=== PATIENT | female | born 1960 | race Caucasian/White ===

== ENCOUNTER 2022-09-20 14:30 | Outpatient (RCR) | payer MEDICARE, SELFPAY | END 2022-10-09 13:17 | disposition home or self-care (01) | LOC: ANHDMC 14:30 | PROVIDERS: PCP Internal Medicine Endocrinology, Diabetes & Metabolism; Visit Provider Internal Medicine Endocrinology, Diabetes & Metabolism | DX: E11.65 Type 2 diabetes mellitus with hyperglycemia (principal); Z71.89 Other specified counseling | CPT/HCPCS: G0108; G0109 ==

== ENCOUNTER 2023-07-05 13:18 | Outpatient (CLI) | payer MEDICARE, SELFPAY ==
--- NOTE | 2023-07-05 13:37 | ECG_ITS ---
Measurements Intervals [place] Rate: 56 P: 47 AL: 153 QRS: -4 QRSD: 96 T: 27 QT: 370 QTc: 360 Interpretive Statements SINUS BRADYCARDIA MINIMAL VOLTAGE CRITERIA FOR LVH, CONSIDER NORMAL VARIANT [MEETS CRITERIA IN ONE OF: R(aVL), S(V1), R(V5), R(V5/V6)+S(V1)] NO PREVIOUS ECG AVAILABLE FOR COMPARISON Electronically Signed On 07-05-2023 14:08:52 [employer]IOR [employer] by Ginna Sloan M.D.
[2023-07-05 14:11] LABS: Anion Gap 7 mmol/L (8-16); Blood Urea Nitrogen 23 mg/dL (7-17); Calcium 9.3 mg/dL (8.4-10.2); Carbon Dioxide 28 mmol/L (22-30); Chloride 97 mmol/L (98-107); Estimated Glomerular Filt Rate > 60; Glucose 133 mg/dL (65-110); Potassium 4.1 mmol/L (3.4-5.0); Sodium 132 mmol/L (137-145)
== END 2023-07-05 13:19 | disposition home or self-care (01) ==
LOC: ANHSURGERY 13:34
PROVIDERS: Anesthesiology; Visit Provider Urology
DX: N36.42 Intrinsic sphincter deficiency (ISD) (principal); E11.9 Type 2 diabetes mellitus without complications; Z01.818 Encounter for other preprocedural examination
CPT/HCPCS: 36415; 80048; 87086; 93005

== ENCOUNTER 2023-07-13 01:17 | Day surgery (SDC) | payer MEDICARE, SELFPAY ==
[2023-06-29 14:51] VITALS: BMI 36.6
--- NOTE | 2023-06-29 15:03 | PC.NURSE ---
PRE-OP INSTRUCTIONS, PLEASE READ CAREFULLY Report to the Outpatient Waiting Room, entrance under the green pavilion located off [facility], at time _0915_ on date _07/13/23_. Planned Procedure Time: _1115_. Time changes happen often and if your time is changed the preop area will call you the afternoon before. - You and your visitor will be asked to self-screen and do not enter if you have any COVID symptoms. - A mask is optional within the hospital at this time. Patients may have clear liquids (water, carbonated beverages, clear teas, apple juice) until 3 hours prior to surgery (0815 AM) with a maximum of 20 ounces. - No food from midnight until time of surgery Take the following medications with a SIP of water the morning of surgery: _BUPROPION, DULOXETINE, GABAPENTIN, UNITHROID_ DO NOT STOP ANY OF YOUR OTHER PRESCRIPTION MEDICATIONS PRIOR TO SURGERY ?EXCEPT THE FOLLOWING Medications to discontinue per physician __NONE____, Date to take last dose Please no make-up, nail korean, hairspray, perfume, deodorant, or body powder the day of surgery. No jewelry (including any body piercings) or valuables the day of surgery, leave them at home. Please take a shower or bath the night before, or the morning of, surgery with an antibacterial soap. Wear comfortable, loose fitting clothing. - Jewelry must be removed prior to entering the operating room. Rings and piercings that are not removed may be cut off. - The hospital will not accept responsibility for valuables. - Please leave all valuables, including medications, at home the day of surgery. If you are going home after surgery, a licensed short haul driver must drive you home. - NO public transportation without another adult if you receive anesthesia. - We recommend that an adult stay with you for 24 hours following discharge. - We also recommend that you do not drive, make important decision, drink alcoholic beverages, or take any drugs that were not prescribed by your health care provider for at least 24 hours after your discharge time. Follow any additional instructions given to you from your surgeon. If you or anyone in your household have experienced Covid symptoms in the past week, please notify your surgeon or the nurse liaison at the phone number below for possible testing. Telephone instructions given to _PATIENT_and asked if any additional questions and then verbalized understanding. Patient advised to call surgeon office or pre surgery nurse liaison [phone] if any additional questions.
[2023-07-13] VITALS (12 sets, daily range): BP systolic 111–184; BP diastolic 63–81; PULSE 46–87; RESP 10–18; TEMP 36.4–36.7; O2SAT 95–100
--- NOTE | 2023-07-13 04:52 | PM.IMHP ---
H&P: HPI History of Present Illness Date/Time: 07/13/23 04:52 Chief Complaint: vaginal mesh exposure Narrative: 63-year-old urethral sling performed in 2019. She has no stress incontinence. She has an area of mesh erosion just felt by her partner. She would like this resolved. Review of Systems Review of Systems: All systems reviewed & are unremarkable except as noted in HPI and below PMFSH Social History Social History Smoking status: Never smoker Second hand tobacco smoke exposure: No Alcohol intake: never Substance use: never Substance use type: does not use Living arrangements: alone Spiritual care concerns: No Meds Home Medications and Allergies Home Medications Medication Instructions Recorded Confirmed Type atorvastatin 10 mg tablet 10 mg HS 06/29/23 06/29/23 History bupropion HCl 150 mg 24 hr tablet, 300 mg PO DAILY 06/29/23 06/29/23 History extended release dapagliflozin propanediol 10 mg 10 mg DAILY 06/29/23 06/29/23 History tablet (Farxiga) doxazosin 4 mg tablet 4 mg HS 06/29/23 06/29/23 History duloxetine 30 mg capsule,delayed 60 mg PO DAILY 06/29/23 06/29/23 History release gabapentin 400 mg capsule 800 mg BID 06/29/23 06/29/23 History levothyroxine 25 mcg tablet 25 mcg DAILY 06/29/23 06/29/23 History (Unithroid) losartan 100 mg tablet 100 mg DAILY 06/29/23 06/29/23 History semaglutide 1 mg/dose (4 mg/3 mL) 1 mg subcut WEEKLY 06/29/23 06/29/23 History subcutaneous pen injector (Ozempic) tizanidine 4 mg tablet 4 mg HS 06/29/23 06/29/23 History valacyclovir 1 gram tablet 2,000 mg BID PRN Cold Sores 06/29/23 06/29/23 History Allergies Allergy/AdvReac Type Severity Reaction Status Date / Time codeine Allergy Intermediate Hives / Verified 06/29/23 14:45 Red [place] Sulfa (Sulfonamide Allergy Intermediate Hives / Verified 06/29/23 14:45 Antibiotics) Red Face hydrocodone AdvReac Rash Verified 06/29/23 14:45 latex AdvReac Rash Verified 06/29/23 14:45 pcn Allergy Intermediate Hives / Uncoded 06/29/23 14:45 Red [place] Exam Narrative: No acute distress normal breathing alert oriented x3 small area of mesh erosion in the midline Assessment and Plan Assessment and plan (1) Vaginal erosion due to surgical mesh: Code(s): T83.711A - Erosion of implanted vaginal mesh to surrounding organ or tissue, initial encounter Status: Acute (2) Intrinsic sphincter deficiency (ISD): Code(s): N36.42 - Intrinsic sphincter deficiency (ISD) Status: Acute Plan will plan on excising the small area of vaginal mesh erosion. Understands risks of bleeding, infection, inability to resolve the symptoms, recurrent mesh erosion. Will also do a concomitant bulking agent to lessen her risk of recurrent stress incontinence. Understands the risks of urinary retention and he would for repeat procedures as well as efficacy. Agrees to proceed
--- NOTE | 2023-07-13 04:54 | WPDHPUPDATE1 ---
History and Physical Update Update Date/Time: 07/13/23 04:54 History and Physical has been reviewed, including an updated exam of the patient. There are NO changes in the patient's condition. Risks, benefits, and alternatives have been discussed and questions answered. Patient agrees to proceed with procedure.
[2023-07-13 09:52] LABS: Glucose Point of Care 113 mg/dl (65-105)
--- NOTE | 2023-07-13 09:58 | WPDANESEPPF ---
Anes - Initial Pre Proc Eval Procedure: Operation Date: 07/13/23 11:00 Proposed Procedures p Excision of Exposed Vaginal Mesh, - Avelino Altamirano MD s Cystoscopy,Injection Bulking Agent - Avelino Altamirano MD Date/Time: 07/13/23 09:58 Surgeon: Avelino Altamirano MD Pre Op Diagnosis: erosion of implanted vaginal mesh, isd Patient Data Age: 63 Gender: F Height: 1.57 m Weight: 90.9 kg Allergies Allergy/AdvReac Type Severity Reaction Status Date / Time codeine Allergy Intermediate Hives / Verified 06/29/23 14:45 Red Face Sulfa (Sulfonamide Allergy Intermediate Hives / Verified 06/29/23 14:45 Antibiotics) [place] hydrocodone AdvReac Rash Verified 06/29/23 14:45 latex AdvReac Rash Verified 06/29/23 14:45 pcn Allergy Intermediate Hives / Uncoded 06/29/23 14:45 Red Face Home Medications Medication Instructions Recorded Confirmed Type atorvastatin 10 mg tablet 10 mg HS 06/29/23 06/29/23 History bupropion HCl 150 mg 24 hr tablet, 300 mg PO DAILY 06/29/23 06/29/23 History extended release dapagliflozin propanediol 10 mg 10 mg DAILY 06/29/23 06/29/23 History tablet (Farxiga) doxazosin 4 mg tablet 4 mg HS 06/29/23 06/29/23 History duloxetine 30 mg capsule,delayed 60 mg PO DAILY 06/29/23 06/29/23 History release gabapentin 400 mg capsule 800 mg BID 06/29/23 06/29/23 History levothyroxine 25 mcg tablet 25 mcg DAILY 06/29/23 06/29/23 History (Unithroid) losartan 100 mg tablet 100 mg DAILY 06/29/23 06/29/23 History semaglutide 1 mg/dose (4 mg/3 mL) 1 mg subcut WEEKLY 06/29/23 06/29/23 History subcutaneous pen injector (Ozempic) tizanidine 4 mg tablet 4 mg HS 06/29/23 06/29/23 History valacyclovir 1 gram tablet 2,000 mg BID PRN Cold Sores 06/29/23 06/29/23 History hydrocodone 5 mg-acetaminophen 325 1 tablet PO Q6H PRN pain #10 tabs 07/13/23 Rx mg tablet Laboratory Tests 07/13/23 09:49 POC Capillary Glucose 113 H mg/dl (65-105) Patient hx anesthesia problems: none Family hx anesthesia problems: none Results Review: All pre-operative results and documents have been reviewed as part of the pre-operative evaluation. [facility] Social History Social History Smoking status: Never smoker Second hand tobacco smoke exposure: No Alcohol intake: never Substance use: never Substance use type: does not use Living arrangements: alone Spiritual care concerns: No Anes - Eval Final PreProcedure Day of Procedure 07/13/23 09:58 Patient weight: obese Heart: regular rate and rhythm Lungs: clear to auscultation Airway: Mallampati scale class II Neurological: alert and oriented Last oral intake: >/= 8 hours ASA classification: III Emergent: no Anesthetic plan: proceed Anesthesia type and monitoring: general LMA and standard monitoring Results Review: All pre-operative results and documents have been reviewed as part of the pre-operative evaluation. Informed Consent: The patient's anesthetic plan and its attendant risks and benefits were discussed with the patient/family/POA. Questions were solicited and answers provided to the satisfaction of the patient/family/POA.
[2023-07-13] MEDS: LACTATED RINGERS 1,000 ML 30 ML IV CONT ×2 (10:24→12:45)
[2023-07-13] MEDS: SCOPOLAMINE 1 MG PATCH 1 PATCH TRANSDERM (10:33)
[2023-07-13] MEDS: ceFAZolin 2 GM/D5W 50 ML 2 GM/50 ML BAG IVPB (10:42)
[2023-07-13] MEDS: LIDOCAINE HCL 2% GEL UROJET 10 ML PKG MUCOUS MEM (10:49)
--- NOTE | 2023-07-13 11:13 | W.PM.PROC2 ---
Procedure Note - Detailed Date of Procedure 07/13/23 Pre-op Diagnosis erosion of implanted vaginal mesh, intrinsic sphincter deficiency Post-op Diagnosis Same Procedure Performed Excision of exposed vaginal mesh Cystoscopy with suburethral injection of implant material Surgeon Avelino Altamirano MD Anesthesia General Indications This woman had a urethral sling in 2019. She has done well for several years. She has a sexual partner who feel something during intercourse. Exposed mesh was identified. He is here today for excision of the exposed mesh with concomitant bulking agent to decrease the risk of recurrent stress incontinence. She understands risks of bleeding, infection, inability to remove the mesh, recurrent mesh exposure, continued dyspareunia, postoperative voiding dysfunction including incontinence and retention, need for repeat procedures. She agrees to proceed Description of Procedure She was correctly identified. Informed consent obtained. From the operating room. She was given general anesthesia. She was placed in dorsal lithotomy position. She was prepped and draped sterile fashion. Time-out performed. I examined the anterior vaginal wall. There was a area of mesh exposure the midline. I was able to pass a mosquito clamp behind this area mesh. I divided in the midline. I then dissected out laterally and removed a 1-2 cm segment of mesh. There was no further mesh fragments. I did [id number] 2-0 Vicryl suture to close the defect. I then turned my attention to the bulking agent. The bladder was examined and was without abnormalities. Urethra is normal as well. No surgical artifact or tumors. I chose a site in mid urethra 2 cm distal the bladder neck. I injected bulking agent circumferentially. I used 1 total syringe. I formed 6 pillows coapted the urethra. Her bladder was left partially full. She was awakened transferred to PACU in stable condition Estimated Blood Loss 1 Drains No Packing No Pathology Yes (exposed mesh) Condition Stable Disposition PACU
[2023-07-13 11:22] LABS: Glucose Point of Care 117 mg/dl (65-105)
--- NOTE | 2023-07-13 14:03 | SUR.PHASEII ---
Bladder scanner showed 999mL. Dr. Altamirano called to inform.
--- NOTE | 2023-07-13 15:45 | SUR.PHASEII ---
1405: Dr. Altamirano called since patient couldn't urinate and told that there was 999mL in bladder per bladder scanner. He said to insert a 14F Castro and patient could d/c on own in 24 hours. Patient has a latex allergy and per central the latex free catheters only come in 16F. RN provided teaching to patient about catheter care and removal. 1456: Dr. Cheng aware of elevated BP and told patient to go home and take regular meds for BP. No further treatment here at the hospital.
--- NOTE | 2023-07-13 16:00 | SUR.PHASEII ---
1521: Dr. Altamirano called and asked to please change prescription to Tramadol since patient has an allergy to hydrocodone.
== END 2023-07-13 15:17 | disposition home or self-care (01) ==
PROVIDERS: Visit Provider Urology
PROC: (CPT 57295; principal; 2023-07-13 11:00)
PROC: 3E0K8GC Introduction of Other Therapeutic Substance into Genitourinary Tract, Via Natural or Artificial Opening Endoscopic (ICD-10-PCS; CPT 57295; 2023-07-13 11:00)
DX: T83.711A Erosion of implanted vaginal mesh to surrounding organ or tissue, initial encounter (principal); Y83.8 Other surgical procedures as the cause of abnormal reaction of the patient, or of later complication, without mention of misadventure at the time of the procedure; N36.42 Intrinsic sphincter deficiency (ISD); Z79.84 Long term (current) use of oral hypoglycemic drugs; Z79.85 Long-term (current) use of injectable non-insulin antidiabetic drugs; E66.9 Obesity, unspecified; Z68.36 Body mass index [BMI] 36.0-36.9, adult
CPT/HCPCS: 57295; 51715; 36415; 80048; 82948; 87086; 88300; 93005; A9270; J0461; J0690; J1596; J2250; J2704; J3010; J7030; J7120; L8606